=== PATIENT | male | born 1955 | race Caucasian/White ===

== ENCOUNTER → 2021-03-08 | Outpatient (CLI) | payer MEDICARE ==
[~2021-03-08] MED LIST: ACID CONTROL150 MG PO; AMBIEN5 MG PO; CLEOCIN HCL150 MG PO; COLACE 100MG C100 MG PO; COREG 12.5MG12.5 MG PO; GLUCOPHAGE 500500 MG PO; LISINOPRIL10 MG PO; LODINE CAP 300300 MG PO; MORPHINE SULFAT30 M1 PO; PROTONIX 40 MG40 M1 PO; TIZANIDINE HCL4 MG PO; ZOFRAN4 MG PO
== END ==
LOC: CT 09:40
DX: K40.20 Bilateral inguinal hernia, without obstruction or gangrene, not specified as recurrent (principal); R91.1 Solitary pulmonary nodule; N43.3 Hydrocele, unspecified
CPT/HCPCS: 36415; 82565; 84520; Q9967

== ENCOUNTER → 2021-04-21 | Outpatient (CLI) | payer MEDICARE | LOC: KOH-I 13:28 | DX: N43.3 Hydrocele, unspecified (principal) | CPT/HCPCS: 76870 ==

== ENCOUNTER → 2021-08-09 | Outpatient (CLI) | payer MEDICARE | LOC: CT 08:30 | DX: R91.1 Solitary pulmonary nodule (principal) | CPT/HCPCS: 36415; 71260; 82565; 84520; Q9967 ==